=== PATIENT | male | born 2000 | race Caucasian/White ===

== ENCOUNTER 2019-02-21 10:39 | Emergency (ER) | payer SELFPAY ==
[~2019-02-21] VITALS: Ht 165.1 cm; Wt 85.3 kg
[2019-02-21 10:44] VITALS: Ht 165.1 cm; Wt 85.3 kg
[2019-02-21 12:37] LABS: BASOPHIL % 0.6 % (0-2); PLATELET COUNT 232 x10^3mcL (130-400); RED CELL DISTRIBUTION WIDTH 12.5 % (11.5-14.5)
[2019-02-21 12:41] LABS: microscopic required? NO
[2019-02-21 12:43] LABS: CARBON DIOXIDE 28.3 mmol/L (21-32); CHLORIDE SERUM 102 mmol/L (98-107); GFR1 > 60 mL/min; GLUCOSE SERUM 97 mg/dL (74-106); POTASSIUM SERUM 4.4 mmol/L (3.5-5.1); SODIUM SERUM 138 mmol/L (136-145)
[2019-02-21 12:47] LABS: ALKALINE PHOSPHATASE 85 U/L (46-116); ALT/SGPT 61 U/L (16-63); AST/SGOT 32 U/L (15-37); BILIRUBIN TOTAL 0.44 mg/dL (0.20-1.00); LIPASE 91 IU/L (73-393); TOTAL PROTEIN, SERUM 7.8 g/dL (6.4-8.2)
[2019-02-21 13:09] LABS: UA SPECIFIC GRAVITY 1.015 (1.005-1.035); urine erythrocyte NEGATIVE (NEGATIVE)
[2019-02-21 14:32] VITALS: BP 122/60
== END 2019-02-21 14:32 | disposition home or self-care (01) ==
LOC: ED 10:39
PROVIDERS: Emergency Medicine
DX: K40.90 Unilateral inguinal hernia, without obstruction or gangrene, not specified as recurrent (principal); F17.200 Nicotine dependence, unspecified, uncomplicated
CPT/HCPCS: 99406; J2405; J3010; J7030; Q9967